=== PATIENT | female | born 1940 | race Caucasian/White ===

== ENCOUNTER 2017-01-09 17:54 | Emergency (ER) | payer MEDICARE ==
[2017-01-09 18:30] LABS: #Basophils 0.1 thou/uL (0.0-0.2); #Eosinphils 0.4 thou/uL (0.0-0.7); #Monocytes 0.9 thou/uL (0.11-0.59); #Neutrophils 4.4 thou/uL (1.40-6.50); %Basophils 1.3 % (0.0-1.0); %Eosinophils 5.4 % (0.0-10.0); %Lymphocytes 25.6 % (21.0-51.0); %Monocytes 11.3 % (0.0-10.0); %Neutrophils 56.5 % (42.0-75.0); Hemoglobin 11.3 g/dL (12.0-16.0); Mean Corpuscular HGB CONC 33.4 g/dL (32.0-36.0); Mean Corpuscular Hemoglobin 31.2 pg (27.0-31.0); Mean Corpuscular Volume 93.4 fl (81.0-99.0); Mean Platelet Volume 7.4 fL (7.4-10.4); Platelet Count 265 thou/uL (130-400); RBC Distribution Width 11.8 % (11.5-14.5); Red Blood Cell (RBC) Count 3.62 mill/uL (4.20-5.40); White Blood Cell (WBC) Count 7.7 thou/uL (4.8-10.8)
[2017-01-09 18:33] LABS: Bilirubin Negative (Negative); Blood, Urine Negative (Negative); Clarity Clear (Clear); Glucose, Urine (Dipstick) Negative (Negative); Leukocyte Negative (Negative); Nitrite Negative (Negative); Protein, Urine (Dipstick) 100 mg/dL (Neg-Trace); Urobilinogen 0.2 mg/dL (0.2-1.0); pH, Urine 5.5 (5.0-9.0)
[2017-01-09] MEDS ORDERED: Lorazepam 0.5 MG TAB ONE (18:33)
[2017-01-09 18:35] LABS: Bacteria/HPF Rare-Few HPF (None Seen); RBC/HPF 0-3 HPF (0-3); Squamous Epithelial 0-3 HPF (0-3); WBC/HPF 0-3 HPF (0-3)
[2017-01-09 18:44] LABS: ALT (SGPT) 17 U/L (0-55); AST (SGOT) 31 U/L (5-34); Albumin 3.6 g/dL (3.4-4.8); Alkaline Phosphatase 52 U/L (40-150); Anion Gap 15 mmol/L (10-20); BUN (Urea Nitrogen) 32 mg/dL (9.8-20.1); Bilirubin, Total 0.5 mg/dL (0.2-1.2); Calc. Creatinine Clearance 0 mL/min (70-130); Carbon Dioxide 24 mmol/L (23-31); Chloride 103 mmol/L (98-107); Estimated GFR-MDRD 68; Globulin 2.6 g/dL (2.4-3.5); Glucose 109 mg/dL (83-110); Potassium 4.8 mmol/L (3.5-5.1); Protein, Total 6.2 g/dL (5.8-8.1); Sodium 137 mmol/L (136-145)
== END 2017-01-09 19:30 | disposition home or self-care (01) ==
LOC: BURERS 17:54
DX: F41.9 Anxiety disorder, unspecified (principal); E11.9 Type 2 diabetes mellitus without complications; E78.5 Hyperlipidemia, unspecified; E78.00 Pure hypercholesterolemia, unspecified; I10 Essential (primary) hypertension; F32.9 Major depressive disorder, single episode, unspecified; Z79.899 Other long term (current) drug therapy; Z79.82 Long term (current) use of aspirin; Z79.84 Long term (current) use of oral hypoglycemic drugs
CPT/HCPCS: 36415; 80053; 81003; 81015; 85025; 96360

== ENCOUNTER 2017-01-11 13:13 | Emergency (ER) | payer MEDICARE | END 2017-01-11 14:54 | disposition home or self-care (01) | LOC: BURERS 13:13 | DX: F41.9 Anxiety disorder, unspecified (principal); E11.9 Type 2 diabetes mellitus without complications; E78.5 Hyperlipidemia, unspecified; I10 Essential (primary) hypertension; F32.9 Major depressive disorder, single episode, unspecified; Z79.82 Long term (current) use of aspirin; Z79.899 Other long term (current) drug therapy | CPT/HCPCS: 36416; 99283 ==

== ENCOUNTER 2017-01-12 14:57 | Emergency (ER) | payer MEDICARE | END 2017-01-12 15:51 | disposition home or self-care (01) | LOC: BURERS 14:57 | DX: R53.1 Weakness (principal); E11.9 Type 2 diabetes mellitus without complications; E78.5 Hyperlipidemia, unspecified; E78.00 Pure hypercholesterolemia, unspecified; I10 Essential (primary) hypertension; F41.9 Anxiety disorder, unspecified; F32.9 Major depressive disorder, single episode, unspecified; Z79.82 Long term (current) use of aspirin; Z79.891 Long term (current) use of opiate analgesic; Z79.899 Other long term (current) drug therapy | CPT/HCPCS: 99284 ==

== ENCOUNTER 2017-04-14 10:14 | Outpatient (CLI) | payer MEDICARE ==
[2017-04-14 12:37] LABS: #Eosinphils 0.3 thou/uL (0.0-0.7); #Lymphocytes 1.4 thou/uL (1.20-3.40); #Monocytes 0.6 thou/uL (0.11-0.59); #Neutrophils 3.3 thou/uL (1.40-6.50); %Basophils 0.9 % (0.0-1.0); %Eosinophils 5.8 % (0.0-10.0); %Lymphocytes 24.6 % (21.0-51.0); %Monocytes 10.2 % (0.0-10.0); %Neutrophils 58.6 % (42.0-75.0); Hemoglobin 13.2 g/dL (12.0-16.0); Mean Corpuscular Hemoglobin 30.2 pg (27.0-31.0); Mean Corpuscular Volume 91.7 fl (81.0-99.0); Mean Platelet Volume 5.6 fL (7.4-10.4); Platelet Count 297 thou/uL (130-400); Red Blood Cell (RBC) Count 4.38 mill/uL (4.20-5.40); White Blood Cell (WBC) Count 5.7 thou/uL (4.8-10.8)
[2017-04-14 12:45] LABS: ALT (SGPT) 19 U/L (8-55); AST (SGOT) 20 U/L (5-34); Albumin 3.8 g/dL (3.4-4.8); Alkaline Phosphatase 61 U/L (40-150); Anion Gap 15 mmol/L (10-20); BUN (Urea Nitrogen) 17 mg/dL (9.8-20.1); Bilirubin, Total 0.5 mg/dL (0.2-1.2); Calc. Creatinine Clearance 0 mL/min (70-130); Calcium 9.2 mg/dL (7.8-10.44); Carbon Dioxide 23 mmol/L (23-31); Chloride 109 mmol/L (98-107); Cholesterol 192 mg/dl (< 200 Desired); Estimated GFR-MDRD 78; Globulin 2.5 g/dL (2.4-3.5); Glucose 124 mg/dL (83-110); HDL Cholesterol 65 mg/dL (>60 Neg Risk); LDL Cholesterol, Calculated 92 mg/dL; Potassium 4.2 mmol/L (3.5-5.1); Protein, Total 6.3 g/dL (6.0-8.3); Sodium 143 mmol/L (136-145); Triglycerides 173 mg/dL (Less than 150)
[2017-04-14 13:02] LABS: Hemoglobin A1c 6.2 % (4.0-6.0)
== END 2017-04-14 10:15 ==
LOC: HPCALD 10:14
PROVIDERS: ATTEND Family Medicine
DX: E78.2 Mixed hyperlipidemia (principal); E11.9 Type 2 diabetes mellitus without complications; I10 Essential (primary) hypertension
CPT/HCPCS: 36415; 80053; 80061; 82043; 83036; 84443; 85025

== ENCOUNTER 2017-05-19 12:23 | Outpatient (CLI) | payer MEDICARE ==
--- NOTE | 2017-05-20 09:19 | RAD ---
LEFT HIP: 05/19/17 Two views show no fracture or joint space narrowing. The articular surfaces are smooth. The surrou nding bones appear intact. If pain continues, then CT might be done as some subtle bony injuries in this age group do not alway s show well on plain films. IMPRESSION: No acute findings. POS: HOME
== END 2017-05-19 12:24 | disposition home or self-care (01) ==
LOC: BURRAD 12:23
PROVIDERS: ATTEND Family Medicine
DX: M25.552 Pain in left hip (principal)

== ENCOUNTER 2017-09-24 11:38 | Emergency (ER) | payer MEDICARE ==
[2017-09-24 12:36] LABS: Bilirubin Small (Negative); Blood, Urine Negative (Negative); Clarity Slightly Cloudy (Clear); Glucose, Urine (Dipstick) Negative (Negative); Leukocyte Negative (Negative); Nitrite Negative (Negative); Protein, Urine (Dipstick) 100 mg/dL (Neg-Trace); Urobilinogen 0.2 mg/dL (0.2-1.0); pH, Urine 6.5 (5.0-9.0)
[2017-09-24 12:51] LABS: Bacteria/HPF Rare-Few HPF (None Seen); Hyaline Casts/LPF 0-3 HYALINE CAST LPF (0-3 Hyaline); RBC/HPF 0-3 HPF (0-3); Squamous Epithelial 0-3 HPF (0-3); WBC/HPF 0-3 HPF (0-3)
[2017-09-24 12:52] LABS: Other Microscopic Description SMALL MUCOUS STRANDS
[2017-09-24 13:02] LABS: Hemoglobin 12.4 g/dL (12.0-16.0); Mean Corpuscular HGB CONC 34.4 g/dL (32.0-36.0); Mean Corpuscular Hemoglobin 31.4 pg (27.0-31.0); Mean Corpuscular Volume 91.3 fl (81.0-99.0); Mean Platelet Volume 5.8 fL (7.4-10.4); Platelet Count 206 thou/uL (130-400); RBC Distribution Width 11.8 % (11.5-14.5); Red Blood Cell (RBC) Count 3.96 mill/uL (4.20-5.40); White Blood Cell (WBC) Count 4.4 thou/uL (4.8-10.8)
[2017-09-24 13:13] LABS: ALT (SGPT) 65 U/L (8-55); AST (SGOT) 68 U/L (5-34); Albumin 3.8 g/dL (3.4-4.8); Alkaline Phosphatase 49 U/L (40-150); Anion Gap 15 mmol/L (10-20); BUN (Urea Nitrogen) 17 mg/dL (9.8-20.1); Bilirubin, Total 0.4 mg/dL (0.2-1.2); Calc. Creatinine Clearance 0 mL/min (70-130); Calcium 8.9 mg/dL (7.8-10.44); Carbon Dioxide 23 mmol/L (23-31); Chloride 105 mmol/L (98-107); Estimated GFR-MDRD 63; Globulin 2.8 g/dL (2.4-3.5); Glucose 120 mg/dL (83-110); Lipase 19 U/L (8-78); Potassium 3.9 mmol/L (3.5-5.1); Protein, Total 6.6 g/dL (6.0-8.3); Sodium 139 mmol/L (136-145)
[2017-09-24 13:15] LABS: Band 1 % (5-11); Eosinophils 10 % (0-10); Lymphocytes 19 % (21-51); MDiff Complete? YES; Monocytes 12 % (0-10); Neutrophil 58 % (42-75)
--- NOTE | 2017-09-24 13:16 | RAD ---
PA AND LATERAL CHEST: History: Cough and fever. Comparison: 12-26-14 FINDINGS: The heart size is enlarged. Lungs are well expanded without focal areas of consolidation, pneumothora x, or pleural effusions. There is no evidence for carlos pulmonary edema. IMPRESSION: No radiographic evidence of acute cardiopulmonary process. POS: [facility]
== END 2017-09-24 13:32 | disposition home or self-care (01) ==
LOC: BURERS 11:38
DX: A08.4 Viral intestinal infection, unspecified (principal); E11.9 Type 2 diabetes mellitus without complications; E78.5 Hyperlipidemia, unspecified; F32.9 Major depressive disorder, single episode, unspecified; F41.9 Anxiety disorder, unspecified; I10 Essential (primary) hypertension; Z79.84 Long term (current) use of oral hypoglycemic drugs; Z79.899 Other long term (current) drug therapy
CPT/HCPCS: 51701; 71020; 80053; 81003; 81015; 83605; 83690; 85025; A4353

== ENCOUNTER 2018-11-26 15:16 | Emergency (ER) | payer MEDICARE | END 2018-11-26 16:58 | disposition home or self-care (01) | LOC: BURERS 15:16 | DX: R60.0 Localized edema (principal); E78.5 Hyperlipidemia, unspecified; I10 Essential (primary) hypertension; E11.9 Type 2 diabetes mellitus without complications; F41.9 Anxiety disorder, unspecified; F32.9 Major depressive disorder, single episode, unspecified; Z79.891 Long term (current) use of opiate analgesic; Z79.899 Other long term (current) drug therapy; Z79.84 Long term (current) use of oral hypoglycemic drugs | CPT/HCPCS: 36415; 85379; 99283 ==

== ENCOUNTER 2018-12-18 14:06 | Outpatient (CLI) | payer MEDICARE ==
--- NOTE | 2018-12-18 17:52 | RAD ---
SACRUM AND COCCYX 3 VIEWS: Date: 12/18/18 No fracture or obvious bony destruction was apparent. The level of detail available on these images i s somewhat limited. If pain were to persist, then CT or MRI would be needed to display the area patrick r. The SI joints seem symmetrical. There may be a minor amount of sclerosis around the lower SI joint s. A small bony density seen at the top of the left SI joint does not appear acute. It could be due t o old trauma. IMPRESSION: Mildly limited study showing no acute findings. POS: HOME
== END 2018-12-18 14:07 | disposition home or self-care (01) ==
LOC: BURRAD 14:06
PROVIDERS: ATTEND Family Medicine
DX: M53.3 Sacrococcygeal disorders, not elsewhere classified (principal)
CPT/HCPCS: 72220

== ENCOUNTER 2019-08-10 15:06 | Outpatient (CLI) | payer MEDICARE ==
--- NOTE | 2019-08-10 17:40 | RAD ---
LEFT SHOULDER THREE VIEWS: 08/10/19 Severe arthritis is present in the glenohumeral joint with large osteophytes, loss of the joint space and bony sclerosis. There may be some loose bodies as well. The AC joint is not widened. The visible adjacent ribs appear intact. Incidentally noted were changes of facet arthritis in the lower cervica l spine. IMPRESSION: Severe arthritic changes of the glenohumeral joint. POS: HOME
== END 2019-08-10 15:07 | disposition home or self-care (01) ==
LOC: BURRAD 15:06
PROVIDERS: ATTEND Family Medicine
DX: M25.512 Pain in left shoulder (principal); M19.012 Primary osteoarthritis, left shoulder

== ENCOUNTER 2019-10-03 15:48 | Emergency (ER) | payer MEDICARE ==
[2019-10-03] MEDS ORDERED: Dexamethasone 4 MG TAB ONE (16:29)
[2019-10-03] MEDS ORDERED: AMOXicillin 250 MG CAP ONE (16:37)
--- NOTE | 2019-10-03 18:39 | RAD ---
PORTABLE CHEST: Date: 10/03/2019 An AP portable film at 1616 hours is compared with the 09/09/17 study. The heart is mildly enlarged, but no different than before. There is no vascular congestion or edema. No large pleural effusions are seen. Minimal haziness in the right base medially is similar to the p rior study. I cannot confirm any definite acute infiltrate, though the left base is seen very poorly. IMPRESSION: Low sensitivity film showing no definite acute findings. POS: HOME
== END 2019-10-03 16:42 | disposition home or self-care (01) ==
LOC: BURERS 15:48
DX: J06.9 Acute upper respiratory infection, unspecified (principal); I10 Essential (primary) hypertension; E78.5 Hyperlipidemia, unspecified; E78.00 Pure hypercholesterolemia, unspecified; F41.9 Anxiety disorder, unspecified; F32.9 Major depressive disorder, single episode, unspecified
CPT/HCPCS: 71045; 94640; J7620; J8540

== ENCOUNTER 2019-10-27 14:16 | Outpatient (CLI) | payer MEDICARE ==
--- NOTE | 2019-10-27 23:37 | RAD ---
LUMBAR SPINE 10/27/19 A mild S-shaped lumbar scoliosis is present. There are very severe arthritic changes in the facet yong nts. Prominent anterior subluxation of L3 on L4 and even more so L4 on L5, appears to be due to the f acet arthritis. No pars defects were seen. Degenerative disc disease is present in particular at the L1 through L4-5 levels. L5-S1 is relatively spared by disc space narrowing. The SI joints are symmetr ical. IMPRESSION: Very severe degenerative facet disease along with multilevel degenerative disc disease. POS: HOME
== END 2019-10-27 14:17 | disposition home or self-care (01) ==
LOC: BURRAD 14:16
PROVIDERS: ATTEND Family Medicine
DX: M54.5 Low back pain (principal); M47.816 Spondylosis without myelopathy or radiculopathy, lumbar region; M51.36 Other intervertebral disc degeneration, lumbar region
CPT/HCPCS: 72100

== ENCOUNTER 2020-04-29 18:44 | Emergency (ER) | payer MEDICARE ==
--- NOTE | 2020-04-29 19:31 | RAD ---
EXAM: Single view of the chest HISTORY: Chest pain COMPARISON: 10/03/2019 FINDINGS: Single view of the chest shows an enlarged but stable cardiomediastinal silhouette. There i s no evidence of consolidation, mass, or pleural effusion. The bones are unremarkable IMPRESSION: Cardiomegaly without evidence of acute cardiopulmonary disease
[2020-04-29 19:42] LABS: #Basophils 0.1 thou/uL (0.0-0.2); #Eosinphils 0.4 thou/uL (0.0-0.7); #Lymphocytes 1.4 thou/uL (1.20-3.40); #Monocytes 0.8 thou/uL (0.11-0.59); #Neutrophils 8.7 thou/uL (1.40-6.50); %Basophils 0.4 % (0.0-1.0); %Eosinophils 3.2 % (0.0-10.0); %Lymphocytes 12.5 % (21.0-51.0); %Monocytes 7.4 % (0.0-10.0); %Neutrophils 76.5 % (42.0-75.0); Hemoglobin 12.4 g/dL (12.0-16.0); Mean Corpuscular HGB CONC 30.5 g/dL (32.0-36.0); Mean Corpuscular Hemoglobin 30.1 pg (27.0-31.0); Mean Corpuscular Volume 98.8 fL (78.0-98.0); Platelet Count 268 thou/uL (130-400); RBC Distribution Width 12.1 % (11.5-14.5); Red Blood Cell (RBC) Count 4.12 mill/uL (4.20-5.40); White Blood Cell (WBC) Count 11.4 thou/uL (4.8-10.8)
[2020-04-29 19:58] LABS: ALT (SGPT) 18 U/L (8-55); AST (SGOT) 16 U/L (5-34); Albumin 3.9 g/dL (3.4-4.8); Alkaline Phosphatase 53 U/L (40-110); Anion Gap 18 mmol/L (10-20); BUN (Urea Nitrogen) 31 mg/dL (9.8-20.1); Bilirubin, Total 0.4 mg/dL (0.2-1.2); Calc. Creatinine Clearance 0 mL/min (70-130); Calcium 10.6 mg/dL (7.8-10.44); Carbon Dioxide 23 mmol/L (23-31); Chloride 106 mmol/L (98-107); Estimated GFR-MDRD 51; Globulin 2.6 g/dL (2.4-3.5); Glucose 136 mg/dL (83-110); Potassium 3.7 mmol/L (3.5-5.1); Protein, Total 6.5 g/dL (6.0-8.3); Sodium 143 mmol/L (136-145)
[2020-04-29] MEDS ORDERED: methylPREDNISolone Sod Succ/PF 125 MG/2 ML VIAL ONE (20:04)
[2020-04-29] MEDS ORDERED: Morphine 4 MG/ML VIAL ONE (20:04)
[2020-04-29] MEDS ORDERED: Famotidine In NaCl 20 mg/50 ml Premix Bag ONE (20:04)
[2020-04-29 20:15] LABS: CKMB 0.9 ng/mL (0-6.6)
[2020-04-29] MEDS ORDERED: Aspirin Chewable 81 MG TAB ONE (20:55)
== END 2020-04-29 22:40 | disposition short-term general hospital (02) ==
LOC: BURERS 18:44
DX: T63.461A Toxic effect of venom of wasps, accidental (unintentional), initial encounter (principal); R79.89 Other specified abnormal findings of blood chemistry; R07.9 Chest pain, unspecified; E11.9 Type 2 diabetes mellitus without complications; E78.5 Hyperlipidemia, unspecified; I10 Essential (primary) hypertension; F41.9 Anxiety disorder, unspecified; F32.9 Major depressive disorder, single episode, unspecified; Z79.84 Long term (current) use of oral hypoglycemic drugs; Z79.899 Other long term (current) drug therapy
CPT/HCPCS: 71045; 80053; 82553; 83880; 84484; 85025; 93005; 96361; 96374; 96375; J2270; J2930

== ENCOUNTER 2022-05-02 16:53 | Emergency (ER) | payer MEDICARE ==
[2022-05-02 17:23] LABS: #Eosinphils 0.5 thou/uL (0.0-0.7); #Lymphocytes 1.5 thou/uL (1.20-3.40); #Monocytes 0.7 thou/uL (0.11-0.59); #Neutrophils 4.2 thou/uL (1.40-6.50); %Basophils 0.6 % (0.0-1.0); %Eosinophils 6.8 % (0.0-10.0); %Lymphocytes 21.7 % (21.0-51.0); %Monocytes 10.4 % (0.0-10.0); %Neutrophils 60.4 % (42.0-75.0); Hemoglobin 12.3 g/dL (12.0-16.0); Mean Corpuscular HGB CONC 33.3 g/dL (32.0-36.0); Mean Corpuscular Hemoglobin 30.1 pg (27.0-31.0); Mean Corpuscular Volume 90.3 fL (78.0-98.0); Mean Platelet Volume 5.7 fL (7.4-10.4); Platelet Count 264 thou/uL (130-400); RBC Distribution Width 11.9 % (11.5-14.5); Red Blood Cell (RBC) Count 4.09 mill/uL (4.20-5.40); White Blood Cell (WBC) Count 6.9 thou/uL (4.8-10.8)
[2022-05-02 17:42] LABS: ALT (SGPT) 21 U/L (8-55); AST (SGOT) 27 U/L (5-34); Alkaline Phosphatase 62 U/L (40-110); Anion Gap 14 mmol/L (10-20); BUN (Urea Nitrogen) 24 mg/dL (9.8-20.1); Bilirubin, Total 0.4 mg/dL (0.2-1.2); Calc. Creatinine Clearance 0 mL/min (70-130); Calcium 10.1 mg/dL (7.8-10.44); Carbon Dioxide 29 mmol/L (23-31); Chloride 104 mmol/L (98-107); Estimated GFR 44; Globulin 3.3 g/dL (2.4-3.5); Glucose 108 mg/dL (83-110); Lipase 16 U/L (8-78); Potassium 4.1 mmol/L (3.5-5.1); Protein, Total 7.3 g/dL (5.8-8.1); Sodium 143 mmol/L (136-145)
[2022-05-02] MEDS ORDERED: Nitroglycerin 0.4 MG TAB 1 EACH ONE (18:47)
[2022-05-02] MEDS ORDERED: Furosemide 40 MG/4 ML VIAL ONE (18:47)
[2022-05-02] MEDS ORDERED: Aspirin Chewable 81 MG TAB ONE (18:47)
[2022-05-02 19:43] LABS: Bilirubin Negative (Negative); Blood, Urine Negative (Negative); Clarity Clear (Clear); Glucose, Urine (Dipstick) Negative (Negative); Ketone, Urine Negative (Negative); Leukocyte Negative (Negative); Nitrite Negative (Negative); Protein, Urine (Dipstick) > or equal to 300 mg/dL (Neg-Trace); Urobilinogen 0.2 mg/dL (Less than 2); pH, Urine 8.5 (5.0-9.0)
[2022-05-02 19:44] LABS: Bacteria/HPF Rare-Few HPF (None Seen); RBC/HPF 0-3 HPF (0-3); Squamous Epithelial 0-3 HPF (0-3); WBC/HPF 0-3 HPF (0-3)
[2022-05-03] MEDS ORDERED: metFORMIN 500 MG TAB PO SCH (02:45)
[2022-05-03] MEDS ORDERED: Carvedilol 6.25 MG TAB PO SCH (02:45)
[2022-05-03] MEDS ORDERED: hydrALAZINE 10 MG TAB PO SCH (02:45)
[2022-05-03] MEDS ORDERED: Oxybutynin 5 MG TAB PO SCH (02:45)
[2022-05-03 08:33] LABS: ALT (SGPT) 19 U/L (8-55); AST (SGOT) 24 U/L (5-34); Albumin 3.5 g/dL (3.4-4.8); Alkaline Phosphatase 54 U/L (40-110); Anion Gap 17 mmol/L (10-20); BUN (Urea Nitrogen) 24 mg/dL (9.8-20.1); Bilirubin, Total 0.3 mg/dL (0.2-1.2); Calc. Creatinine Clearance 0 mL/min (70-130); Calcium 9.2 mg/dL (7.8-10.44); Carbon Dioxide 24 mmol/L (23-31); Chloride 105 mmol/L (98-107); Estimated GFR 49; Globulin 2.9 g/dL (2.4-3.5); Glucose 108 mg/dL (83-110); Potassium 3.5 mmol/L (3.5-5.1); Protein, Total 6.4 g/dL (5.8-8.1); Sodium 142 mmol/L (136-145); Troponin I Less than 0.010 ng/mL (< 0.028)
[2022-05-03] MEDS ORDERED: Amlodipine 5 MG TAB ONE (08:41)
[2022-05-03] MEDS ORDERED: Lisinopril 20 MG TAB ONE (08:41)
[2022-05-03] MEDS ORDERED: Ibuprofen 200 MG TAB ONE (12:43)
== END 2022-05-03 13:10 | disposition short-term general hospital (02) ==
LOC: BURERS 16:53
DX: N17.9 Acute kidney failure, unspecified (principal); I50.9 Heart failure, unspecified; I11.0 Hypertensive heart disease with heart failure; I26.99 Other pulmonary embolism without acute cor pulmonale; R79.89 Other specified abnormal findings of blood chemistry; E11.9 Type 2 diabetes mellitus without complications; E78.5 Hyperlipidemia, unspecified; E78.00 Pure hypercholesterolemia, unspecified; Z79.84 Long term (current) use of oral hypoglycemic drugs; Z79.899 Other long term (current) drug therapy
CPT/HCPCS: 36415; 71045; 80053; 81003; 81015; 83690; 83880; 84484; 85025; 85379; 93005; 96374; J1940

== ENCOUNTER 2023-03-20 15:30 | Outpatient (CLI) | payer MEDICARE | END 2023-03-20 15:31 | disposition home or self-care (01) | LOC: BURRAD 15:30 | PROVIDERS: ATTEND Family Medicine | DX: J18.9 Pneumonia, unspecified organism (principal) | CPT/HCPCS: 71046 ==

== ENCOUNTER 2024-06-13 00:06 | Emergency (ER) | payer MEDICARE, OTHER ==
[2024-06-13] MEDS ORDERED: Amoxicillin/Potassium Clav 875 MG TAB ONE (01:04)
== END 2024-06-13 01:13 | disposition home or self-care (01) ==
LOC: BURERS 00:06
DX: S80.02XA Contusion of left knee, initial encounter (principal); L03.116 Cellulitis of left lower limb; E11.9 Type 2 diabetes mellitus without complications; I10 Essential (primary) hypertension; E78.00 Pure hypercholesterolemia, unspecified; W19.XXXA Unspecified fall, initial encounter; Z79.84 Long term (current) use of oral hypoglycemic drugs; Z79.899 Other long term (current) drug therapy
CPT/HCPCS: 99283

== ENCOUNTER 2024-10-15 15:20 | Emergency (ER) | payer MEDICARE | END 2024-10-15 16:05 | disposition home or self-care (01) | LOC: BURERS 15:20 | DX: F43.0 Acute stress reaction (principal); K12.0 Recurrent oral aphthae; E11.9 Type 2 diabetes mellitus without complications; I10 Essential (primary) hypertension; E78.5 Hyperlipidemia, unspecified; Z79.84 Long term (current) use of oral hypoglycemic drugs; Z79.899 Other long term (current) drug therapy | CPT/HCPCS: 99283 ==

== ENCOUNTER 2025-06-08 18:02 | Outpatient (CLI) | payer MEDICARE | END 2025-06-08 18:03 | disposition home or self-care (01) | LOC: BURRAD 18:02 | PROVIDERS: ATTEND Nurse Practitioner Family | DX: M79.674 Pain in right toe(s) (principal); M79.89 Other specified soft tissue disorders ==

== ENCOUNTER 2025-08-17 11:15 | Emergency (ER) | payer MEDICARE | END 2025-08-17 13:17 | disposition home or self-care (01) | LOC: BURERS 11:15 | DX: S01.511A Laceration without foreign body of lip, initial encounter (principal); E11.9 Type 2 diabetes mellitus without complications; I10 Essential (primary) hypertension; E78.5 Hyperlipidemia, unspecified; W01.0XXA Fall on same level from slipping, tripping and stumbling without subsequent striking against object, initial encounter; Y93.01 Activity, walking, marching and hiking; Z79.84 Long term (current) use of oral hypoglycemic drugs; Z79.899 Other long term (current) drug therapy | CPT/HCPCS: 70450; 72125 ==